=== PATIENT | female | born 1940 | race African-American/Black ===

== ENCOUNTER 2018-05-06 23:43 | Observation (INO) | payer MEDICARE ==
[~2018-05-06] VITALS: Ht 154.9 cm; Wt 71.3 kg
--- NOTE | 2018-05-07 00:04 | PHYS DOC ---
Past History Past Medical History: High Cholesterol, Hypertension Additional Past Medical Histor: PE Past Surgical History: Cholecystectomy, Alcohol Use: None Drug Use: None Adult General Chief Complaint Chief Complaint: MULTIPLE COMPLAINTS HPI HPI 77-year-old female presents via EMS with report of pain from left neck into left shoulder and anterior chest and down into left arm. Reports his been ongoing for the last 3 days. Patient is attending a of her younger sister here in [place]. Patient does report cardiac risk factors including high blood pressure, high cholesterol, and significant family history of CAD. Patient also with history of PE for which she had taken Coumadin for almost 20 years but was recently told to discontinue medication. Reports worse with deep inspiration and movement of left shoulder. Denies leg swelling or calf tenderness. Denies trauma. Denies fever or chills. Review of Systems Review of Systems Constitutional: Denies fever or chills [] Eyes: Denies change in visual acuity, redness, or eye pain [] HENT: Denies nasal congestion or sore throat [] Respiratory: Denies cough; reports shortness of breath Cardiovascular: Reports left anterior chest wall pain, reports pleuritic pain GI: Denies abdominal pain, nausea, vomiting, or diarrhea [] : Denies dysuria or hematuria [] Musculoskeletal: Reports neck pain and left arm pain; denies bilateral lower extremity edema Integument: Denies rash or skin lesions [] Neurologic: Denies headache, focal weakness or sensory changes []] Complete systems were reviewed and found to be within normal limits, except as documented in this note. Current Medications Current Medications Current Medications Medications (Trade) Dose Ordered Sig/[facility] Start Time Stop Time Status Last Admin Dose Admin Aspirin ([place]apo Aspirin) 325 mg 1X ONCE 05/07/18 00:00 05/07/18 00:01 UNV Physical Exam Physical Exam Constitutional: Well developed, well nourished, no acute distress, non-toxic appearance. [] HENT: Normocephalic, atraumatic, oropharynx moist Eyes: PERRL, EOMI, conjunctiva normal, no discharge. [] Neck: Normal range of motion, no midline tenderness, supple, no stridor. Paraspinal tenderness noted, L>R Cardiovascular: Heart rate regular rhythm, no murmur [] Lungs & Thorax: Bilateral breath sounds clear to auscultation [] Abdomen: Soft, no tenderness Skin: Warm, dry, no erythema, no rash. [] Extremities: Tenderness to left arm with ROM about left shoulder, no edema. [] Neurologic: Alert and oriented X 3, normal motor function, normal sensory function, no focal deficits noted. [] Psychologic: Affect normal, judgement normal, mood normal. [] EKG EKG @2358 on 05/06/2018: NSR at 85bpm, Q wave in III, No ST elevation. Radiology/Procedures Radiology/Procedures CT angiography chest with contrast HISTORY: Pleuritic chest pain. Left upper extremity pain. TECHNIQUE: Helical CT imaging of the chest with 3-D MIP reconstructions of the pulmonary arteries to assess for emboli with 75 mL Omnipaque 300 intravenous contrast FINDINGS: 2 cm liver cyst. Mild right renal hydronephrosis. Small sliding hiatal hernia gastroesophageal junction. There is an apparent thin internal septation of the left atrium could indicate cor triatriatum. Heart size normal. Mild calcified plaque thoracic aorta. No pulmonary artery emboli. No mediastinal adenopathy in the chest. Small mediastinal and hilar lymph nodes. 5 mm nodule minor fissure coronal image 32. Mild eventration with elevation of the right diaphragm. Calcified granulomas right hilum and right lower lobe. Mild dependent upper and lower lobe groundglass densities most likely atelectasis. There is mild right hilar and infrahilar adenopathy largest lymph node measuring 1 cm. Bones unremarkable. IMPRESSION: 1. No pulmonary artery emboli. 2. Mild eventration with elevation of the right diaphragm. There is moderate dependent atelectasis of the lungs. 3. Mild right hilar and infrahilar adenopathy. 4. 5 mm pulmonary nodule at the minor fissure. In a low-risk patient no follow-up is required, in a patient with risk factors for malignancy follow-up CT chest and 12 months would be advised per the Fleischner guidelines. 5. Mild right renal hydronephrosis. 6. Thin septation within the left atrium as described above. Course & Med Decision Making Course & Med Decision Making Pertinent Labs and Imaging studies reviewed. (See chart for details) Patient presents with report of left anterior chest wall discomfort which started at neck and radiates down left arm 3 days. Patient with significant risk factors for both CAD as well as PE. EKG stable. Labs obtained and posted to chart. Initial troponin within normal limits. D-dimer elevated. CTA chest without acute process. Incidental pulmonary nodules noted and copy of CT imaging provided to patient's family member for future evaluation with her PCP. Symptoms likely secondary to cervical radiculopathy although cannot fully exclude ACS.Patient requiring admission for further evaluation and treatment. Discussed with Dr. Huang (hospitalist) who is in agreement with admission. Discussed findings and plan with patient and family, who acknowledge understanding and agreement. Dragon Disclaimer Dragon Disclaimer This electronic medical record was generated, in whole or in part, using a voice recognition dictation system. Departure Departure: Impression: Primary Impression: Chest pain, rule out acute myocardial infarction Additional Impressions: Left arm pain Incidental pulmonary nodule, > 3mm and < 8mm Disposition: 09 ADMITTED INPATIENT Admitting Physician: Nickie Huang Condition: STABLE Problem Qualifiers CE HUDDLESTON DO May 07, 2018 00:03
[2018-05-07] MEDS ORDERED: IV NORMAL SALINE 1,000ML 1,000 ML IV ONE (00:30)
[2018-05-07] MEDS ORDERED: DEXAMETHASONE SOD PHOS 10 MG/ML VIAL IV ONE (00:30)
[2018-05-07] MEDS ORDERED: ASPIRIN 325 MG TABLET PO ONE (00:30)
[2018-05-07] MEDS ORDERED: ORPHENADRINE CITRATE 60 MG/2 ML VIAL. IV ONE (00:30)
[2018-05-07 00:55] LABS: BASO # 0.1 x10^3/uL (0.0-0.2); BASO % 1 % (0-3); EOS # 0.1 x10^3/uL (0.0-0.7); EOS % 1 % (0-3); HEMATOCRIT 35.6 % (36.0-47.0); HEMOGLOBIN 12.2 g/dL (12.0-15.5); LYMPH # 1.8 x10^3/uL (1.0-4.8); LYMPH % 23 % (24-48); MEAN CORPUSCULAR HEMOGLOBIN 30 pg (25-35); MEAN CORPUSCULAR HGB CONC 34 g/dL (31-37); MEAN CORPUSCULAR VOLUME 86 fL (79-100); MONO # 0.7 x10^3/uL (0.0-1.1); MONO % 9 % (0-9); NEUT # 5.4 x10^3uL (1.8-7.7); NEUT % 67 % (31-73); PLATELET COUNT 224 x10^3/uL (140-400); RED BLOOD COUNT 4.12 x10^6/uL (3.50-5.40); RED CELL DISTRIBUTION WIDTH 13.4 % (11.5-14.5); WHITE BLOOD COUNT 8.1 x10^3/uL (4.0-11.0)
[2018-05-07 01:22] LABS: ALBUMIN 3.5 g/dL (3.4-5.0); ALBUMIN/GLOBULIN RATIO 0.9 (1.0-1.7); ALK PHOS 80 U/L (46-116); ALT (SGPT) 22 U/L (14-59); ANION GAP 8 (6-14); AST (SGOT) 22 U/L (15-37); BLOOD UREA NITROGEN 13 mg/dL (7-20); BUN/CREATININE RATIO 13 (6-20); CALCIUM 9.1 mg/dL (8.5-10.1); CARBON DIOXIDE 28 mmol/L (21-32); CHLORIDE 105 mmol/L (98-107); GFR 53.6; GLUCOSE 119 mg/dL (70-99); LIPASE 139 U/L (73-393); MAGNESIUM 1.8 mg/dL (1.8-2.4); POTASSIUM 3.4 mmol/L (3.5-5.1); SODIUM 141 mmol/L (136-145); TOTAL BILIRUBIN 0.7 mg/dL (0.2-1.0); TOTAL PROTEIN 7.6 g/dL (6.4-8.2)
[2018-05-07 02:06] LABS: BACTERIA,URINE FEW /HPF (0-FEW); BILIRUBIN,URINE NEG (NEG); CLARITY,URINE HAZY; COLOR,URINE YELLOW; GLUCOSE,URINE NEG (NEG); NITRITE,URINE NEG (NEG); RBC,URINE OCC /HPF (0-2); SQUAMOUS EPITHELIAL CELL,UR FEW /LPF; UROBILINOGEN,URINE 0.2 mg/dL (0.2 mg/dL)
[2018-05-07] MEDS ORDERED: CONTRAST GIVEN MC PRN (02:15)
[2018-05-07] MEDS ORDERED: IOHEXOL 300 MG/ML 75 ML VIAL. IV ONE (02:30)
[2018-05-07] MEDS ORDERED: DILT120C80 PO (03:35)
[2018-05-07] MEDS ORDERED: SIMV40TA3 PO (03:35)
[2018-05-07] MEDS ORDERED: HYDR-2758 PO (03:35)
[2018-05-07] MEDS ORDERED: BENZ-8 PO (03:35)
[2018-05-07] MEDS ORDERED: HYDR10SY16 PO (03:35)
[2018-05-07] MEDS ORDERED: WARF2.5T71 PO (03:35)
[2018-05-07] MEDS ORDERED: VALS80TA3 PO (03:35)
[2018-05-07] MEDS ORDERED: ACYC400T PO (03:35)
--- NOTE | 2018-05-07 03:36 | RAD ---
CT angiography chest with contrast HISTORY: Pleuritic chest pain. Left upper extremity pain. TECHNIQUE: Helical CT imaging of the chest with 3-D MIP reconstructions of the pulmonary arteries to assess for emboli with 75 mL Omnipaque 300 intravenous contrast FINDINGS: 2 cm liver cyst. Mild right renal hydronephrosis. Small sliding hiatal hernia gastroesophageal junction. There is an apparent thin internal septation of the left atrium could indicate cor triatriatum. Heart size normal. Mild calcified plaque thoracic aorta. No pulmonary artery emboli. No mediastinal adenopathy in the chest. Small mediastinal and hilar lymph nodes. 5 mm nodule minor fissure coronal image 32. Mild eventration with elevation of the right diaphragm. Calcified granulomas right hilum and right lower lobe. Mild dependent upper and lower lobe groundglass densities most likely atelectasis. There is mild right hilar and infrahilar adenopathy largest lymph node measuring 1 cm. Bones unremarkable. IMPRESSION: 1. No pulmonary artery emboli. 2. Mild eventration with elevation of the right diaphragm. There is moderate dependent atelectasis of the lungs. 3. Mild right hilar and infrahilar adenopathy. 4. 5 mm pulmonary nodule at the minor fissure. In a low-risk patient no follow-up is required, in a patient with risk factors for malignancy follow-up CT chest and 12 months would be advised per the Fleischner guidelines. 5. Mild right renal hydronephrosis. 6. Thin septation within the left atrium as described above. Exposure: One or more of the following individualized dose reduction techniques were utilized for this examination: 1. Automated exposure control 2. Adjustment of the mA and/or kV according to patient size 3. Use of iterative reconstruction technique Electronically signed by: Augustin Delacruz MD (05/07/2018 3:33 AM) [facility]
[2018-05-07] MEDS ORDERED: ONDANSETRON PF 4 MG/2 ML VIAL. IV PRN (04:00)
[2018-05-07] MEDS ORDERED: IV NORMAL SALINE 1,000ML 1,000 ML IV SCH (04:30)
[2018-05-07 05:15] VITALS: BP 136/83
--- NOTE | 2018-05-07 06:24 | EKG ---
[address] [address] Test Date: 2018-05-06 Test Time: 23:58:32 Pat Name: FATEMEH CAMARILLO Department: Room: 109 A Gender: F Head Butler: : 1940 Requested By: CE HUDDLESTON Order Number: [id number] Reading MD: Raúl Friend MD Measurements Intervals [place] Rate: 85 P: 41 NV: 156 QRS: 13 QRSD: 92 T: 31 QT: 378 QTc: 450 Interpretive Statements SINUS RHYTHM Electronically Signed On 05-09-2018 12:07:50 CDT by Raúl Friend MD
[2018-05-07] MEDS ORDERED: HYDROcodone/APAP 5/325MG 1 TAB TABLET PO PRN (12:45)
[2018-05-07] MEDS ORDERED: hydrOXYzine HCL 10 MG/5 ML SYRUP PO SCH (14:00)
[2018-05-07] MEDS ORDERED: ACYCLOVIR 200 MG CAPSULE PO SCH (14:00)
[2018-05-07] MEDS ORDERED: BENZONATATE 100 MG CAPSULE. PO SCH (14:00)
[2018-05-07 15:16] VITALS: BP 129/82
[2018-05-07] MEDS ORDERED: ATORVASTATIN CALCIUM 20 MG TABLET PO SCH (21:00)
[2018-05-08] MEDS ORDERED: LOSARTAN 50 MG TABLET. PO SCH (09:00)
--- NOTE | 2018-05-08 11:05 | SSS ---
ADMIT DATE: 05/07/2018 HISTORY OF PRESENT ILLNESS: The patient is a 77-year-old female patient, who came to the Emergency Room complaining of pain in her left neck that radiates into left shoulder, anterior chest, and down to her left arm. She stated the pain has been going on for the last 3 days. She is attending a of her younger sister here in [place]. She lives in [place], [place]. She apparently has multiple risk factors for coronary artery disease and she did have a pulmonary embolism for which she has taken Coumadin for almost 20 years and was recently told to discontinue that medication. The pain is worse with deep inspiration and movement of her left shoulder, but denied any nausea, vomiting. Denied any diaphoresis, denied any shortness of breath. She was extensively investigated in the Emergency Room and has had her first set of cardiac enzyme was less than 0.017. Her EKG showed that she was in sinus rhythm at a heart rate of 85 beats per minute with Q-wave in lead 3, no ST segment elevation. She did have a CT angio of the chest given her prior history of pulmonary emboli, which showed no pulmonary artery emboli. She has mild eventration with elevation of the right hemidiaphragm. There is moderate dependent atelectasis of the lungs. She has mild right hilar and infrahilar adenopathy. She has 5 mm pulmonary nodule at the minor fissure in a low risk patient. No followup is required in a patient with risk factor for malignancy. Followup CT scan in 12 months would be advised. She has mild right renal hydronephrosis, thin septation within the left atrium as described. The patient was admitted to do 2 more sets of cardiac enzyme and to consult the incident response consultant. PAST MEDICAL HISTORY: Significant for hypertension, hyperlipidemia, pulmonary emboli. PAST SURGICAL HISTORY: Significant for two , cervical spine surgery, bilateral cataract extraction, tonsillectomy, cholecystectomy, appendectomy, total abdominal hysterectomy and bilateral salpingo-oophorectomy. She also underwent esophagogastroduodenoscopy and colonoscopy. ALLERGIES: She is allergic to ATROPINE, LORATADINE, SULFAMETHOXAZOLE and TRIMETHOPRIM. MEDICATIONS: She is currently on following medications: She is on acyclovir 400 mg 3 times a day. She was on warfarin 2.5 mg daily that was discontinued last month, simvastatin 40 mg at bedtime, diltiazem extended release 120 mg twice a day, valsartan 80 mg daily, hydrocodone/APAP 5/325 one tablet every 4 hours as needed, hydroxyzine 10 mg 3 times a day, and benzonatate 100 mg 3 times a day. FAMILY HISTORY: She had 1 older sister at the age of 82 because of myocardial infarction and pneumonia. Another sister of myocardial infarction. Baby sister at the age of 70. Mother had cerebral aneurysm and at age of 75. She does not know her biological father. She has 3 brothers, all younger and healthy. SOCIAL HISTORY: She is . She has a son and a daughter. She quit smoking 40 years ago. She drinks alcohol occasionally. She worked at [employer]. REVIEW OF SYSTEMS: She has bilateral cataract extraction. Denied any glaucoma or macular degeneration. Denied any earache, tinnitus or sensorineural deafness. Denied any nosebleeds, stuffy nose or postnasal drip. Denied any sore throat, sore tongue, toothache, hoarseness of voice or difficulty swallowing. Denied any hematemesis, melena or hematochezia. Denied any dysuria, frequency, hematuria. Did complain mostly pain in her neck that radiates to left shoulder and anterior chest and left arm that has been constant for almost 3 days without association with any nausea, vomiting, diaphoresis or shortness of breath. PHYSICAL EXAMINATION: GENERAL: On examining her, she looked well and was clearly in no apparent respiratory distress. She was somewhat pale, but no jaundice, cyanosis, or thyromegaly. No jugular venous distension. No limb edema. VITAL SIGNS: Her heart rate was 74, blood pressure 129/82, temperature was 98.1, respiratory rate was 18 and oxygen saturation was 93% on 2 liters of oxygen. HEAD, EYES, EARS, NOSE AND THROAT: Showed normocephalic, atraumatic. NECK: Supple. HEART: Showed normal first and second heart sounds. No gallop, rub or murmur. CHEST: Clear to auscultation. No crepitation or rhonchi. ABDOMEN: Distended, soft, nontender. No guarding or rigidity. No organomegaly. All hernial orifice intact. Bowel sounds normal. NEUROLOGIC: She is awake, alert, responding appropriately. All cranial nerves intact. EXTREMITIES: She moves extremities without difficulty. She has 2 more sets of cardiac enzymes that showed the troponin to be less than 0.017. Her prothrombin time was 10.1, INR 1, aPTT was 22 and D-dimer was slightly elevated 0.72 mg/dL. Urinalysis was unremarkable. Given the patient said the pain was atypical, has been constant for almost 3 days mostly in the neck and radiating to the left shoulder, left side anterior chest, and left arm. She had 3 sets of cardiac enzymes that were negative. ASSESSMENT AND PLAN: She had an operation before on her cervical spine and I explained to the patient that most likely her pain is related to her cervical spine and that she needs to have an MRI; however, the patient is flying back to [place], [place] tomorrow, Tuesday05/08/2018 and therefore, I recommended that she should follow up with her primary care physician there to arrange for an MRI of her cervical spine. She was discharged back to continue on acyclovir 400 mg 3 times a day, benzonatate 100 mg 3 times a day, diltiazem hydrochloride 120 mg twice a day, hydrocodone/APAP 5/325 one tablet every 4 hours, hydroxyzine 10 mg per 5 mL syrup 10 mL 3 times a day, simvastatin 40 mg at bedtime and valsartan 80 mg once a day. FINAL DISCHARGE DIAGNOSES: 1. Left-sided cervical radiculopathy. 2. Hypertension. 3. Hyperlipidemia. 4. Pulmonary embolism. KATI HERNANDEZ MD DR: TENNILLE/amie JOB#: [id number] / [id number]
== END 2018-05-07 16:40 | disposition home or self-care (01) ==
LOC: ER 23:43 → 1 SOUTH 05-07 04:25
PROVIDERS: ADMIT Internal Medicine; ATTEND Internal Medicine
DX: M54.12 Radiculopathy, cervical region (principal); E78.00 Pure hypercholesterolemia, unspecified; E78.5 Hyperlipidemia, unspecified; I10 Essential (primary) hypertension; I25.10 Atherosclerotic heart disease of native coronary artery without angina pectoris; N13.30 Unspecified hydronephrosis; J98.11 Atelectasis; Z82.49 Family history of ischemic heart disease and other diseases of the circulatory system; I26.99 Other pulmonary embolism without acute cor pulmonale; Z86.711 Personal history of pulmonary embolism; Z87.891 Personal history of nicotine dependence; Z90.710 Acquired absence of both cervix and uterus; Z98.42 Cataract extraction status, left eye; Z79.899 Other long term (current) drug therapy; Z79.01 Long term (current) use of anticoagulants
CPT/HCPCS: 36415; 71275; 80053; 81001; 82553; 83690; 83735; 83880; 84484; 85025; 85379; 85610; 85730; 87086; 93005; 96374; 96375; 99285; G0378; J1100; J2360; Q9967; G0379; J7030